=== PATIENT | female | born 1950 | race Two or more races ===

== ENCOUNTER 2022-08-12 08:14 | Observation (INO) | payer OTHER ==
[2022-08-12 10:54] LABS: BASO % 0.1 % (0-2.0); EOS % 0.2 % (0-4.5); HEMATOCRIT 43.8 % (32.4-45.2); HEMOGLOBIN 13.9 GM/dL (10.7-15.3); MCH 25.7 pg (25.7-33.7); MCHC 31.7 g/dl (32.0-36.0); MEAN PLT VOLUME 11.1 fl (7.5-11.1); MONO % 8.2 % (3.8-10.2); NEUT % 76.5 % (42.8-82.8); PLATELET COUNT 128 10^3/uL (134-434); RDW 14.2 % (11.6-15.6); WHITE BLOOD COUNT 6.9 K/mm3 (4.0-10.0)
[2022-08-12 11:01] LABS: INR 1.19 (0.83-1.09); PROTHROMBIN TIME (PATIENT) 13.7 SEC (9.7-13.0)
[2022-08-12 11:04] LABS: ACTIVATED PTT 29.8 SECONDS (25.2-36.5)
[2022-08-12 11:18] LABS: ALBUMIN 3.8 g/dl (3.4-5.0); BLOOD UREA NITROGEN 17.7 mg/dL (7-18)
[2022-08-12 11:21] LABS: CREATININE 0.8 mg/dL (0.55-1.3)
[2022-08-12 11:23] LABS: BILIRUBIN,TOTAL 0.4 mg/dL (0.2-1); TOT PROT 7.5 g/dl (6.4-8.2)
[2022-08-12] MEDS ORDERED: SODIUM CHLORIDE 500 ML IV STA (11:25)
[2022-08-12] MEDS ORDERED: OSELTAMIVIR PHOSPHATE 75 MG CAPSULE PO ONE (12:36)
[2022-08-12] MEDS ORDERED: DIPHTH,PERTUSS(ACELL),TET 0.5 ML DISP.SYRIN IM ONE ×2 (12:40→12:55)
[2022-08-12] MEDS ORDERED: ACETAMINOPHEN 325 MG TABLET (FP) PO PRN (12:41)
[2022-08-12 17:19] LABS: PH,URINE 5.5 (5.0-8.0); URINE APPEARANCE CLEAR; URINE BILIRUBIN NEGATIVE (NEGATIVE); URINE COLOR YELLOW; URINE GLUCOSE (UA) NEGATIVE (NEGATIVE); URINE KETONE 1+ (NEGATIVE); URINE LEUK ESTERASE NEGATIVE (NEGATIVE); URINE NITRITE NEGATIVE (NEGATIVE); URINE PROTEIN NEGATIVE (NEGATIVE)
[2022-08-12] MEDS ORDERED: ACETAMINOPHEN 325 MG TABLET (FP) ONE (20:31)
[2022-08-13 00:47] VITALS: BMI 20.9
[2022-08-13] MEDS: OSELTAMIVIR PHOSPHATE 75 MG CAPSULE PO SCH ×4 (01:14→21:06)
[2022-08-13 08:30] LABS: BASO % 0.6 % (0-2.0); EOS % 0.5 % (0-4.5); HEMATOCRIT 41.7 % (32.4-45.2); HEMOGLOBIN 13.6 GM/dL (10.7-15.3); LYMPH % 51.3 % (8-40); MCH 26.2 pg (25.7-33.7); MCHC 32.7 g/dl (32.0-36.0); MEAN CELL VOLUME 80.2 fl (80-96); MEAN PLT VOLUME 10.3 fl (7.5-11.1); MONO % 14.7 % (3.8-10.2); NEUT % 32.9 % (42.8-82.8); PLATELET COUNT 116 10^3/uL (134-434); RDW 14.2 % (11.6-15.6); WHITE BLOOD COUNT 3.2 K/mm3 (4.0-10.0)
[2022-08-13 08:57] LABS: CREATININE 0.5 mg/dL (0.55-1.3)
[2022-08-13 08:59] LABS: BILIRUBIN,TOTAL 0.5 mg/dL (0.2-1); BLOOD UREA NITROGEN 12.8 mg/dL (7-18); CALCIUM 9.1 mg/dL (8.5-10.1)
[2022-08-13 09:01] LABS: ALBUMIN 3.4 g/dl (3.4-5.0); MAGNESIUM 2.4 mg/dL (1.8-2.4); PHOSPHOROUS 3.3 mg/dL (2.5-4.9)
[2022-08-13] MEDS ORDERED: LACTATED RINGERS SOLUTION 1,000 ML/1,000 ML INFUS.BAG IV SCH (15:30)
[2022-08-13] MEDS: LISINOPRIL 20 MG TABLET PO SCH (21:06)
[2022-08-13] MEDS ORDERED: ATORVASTATIN CA 10 MG TABLET (FP) PO SCH (22:00)
[2022-08-14 07:56] LABS: HEMATOCRIT 44.7 % (32.4-45.2); HEMOGLOBIN 14.3 GM/dL (10.7-15.3); MCH 25.8 pg (25.7-33.7); MCHC 32.1 g/dl (32.0-36.0); MEAN CELL VOLUME 80.3 fl (80-96); MEAN PLT VOLUME 10.4 fl (7.5-11.1); PLATELET COUNT 129 10^3/uL (134-434); RBC 5.57 M/mm3 (3.60-5.2); RDW 14.2 % (11.6-15.6); WHITE BLOOD COUNT 3.3 K/mm3 (4.0-10.0)
[2022-08-14 08:45] LABS: CALCIUM 9.3 mg/dL (8.5-10.1)
[2022-08-14 08:46] LABS: BLOOD UREA NITROGEN 18.4 mg/dL (7-18)
[2022-08-14 08:49] LABS: CREATININE 0.7 mg/dL (0.55-1.3)
[2022-08-14] MEDS: OSELTAMIVIR PHOSPHATE 75 MG CAPSULE PO SCH (09:54)
[2022-08-14] MEDS: LISINOPRIL 20 MG TABLET PO SCH (09:54)
[2022-08-14 10:00] LABS: ANISOCYTOSIS 0; HELMET CELLS 0; HOWELL-JOLLY BODIES 0; MACROCYTOSIS 0; OVALOCYTE 0; ROULEAU 0; SICKELED CELLS 0; TARGET CELLS 0; TEAR DROP CELLS 0; TOXIC GRANULATION 0
[2022-08-14 10:23] VITALS: BP 119/67; PULSE 54; RESP 19; TEMP 98.7
== END 2022-08-14 14:13 | disposition home or self-care (01) ==
LOC: JER 08:14 → JERBED 09:13 → J4S 08-13 00:01
PROVIDERS: ADMIT Internal Medicine; ATTEND Internal Medicine
PROC: 0HQ0XZZ Repair Scalp Skin, External Approach (ICD-10-PCS; principal; 2022-08-12)
PROC: 3E0234Z Introduction of Serum, Toxoid and Vaccine into Muscle, Percutaneous Approach (ICD-10-PCS; 2022-08-12)
PROC: 3E0337Z Introduction of Electrolytic and Water Balance Substance into Peripheral Vein, Percutaneous Approach (ICD-10-PCS; 2022-08-12)
DX: J10.1 Influenza due to other identified influenza virus with other respiratory manifestations (principal); R05.9 Cough, unspecified; S01.01XA Laceration without foreign body of scalp, initial encounter; I10 Essential (primary) hypertension; E78.5 Hyperlipidemia, unspecified; W18.39XA Other fall on same level, initial encounter; Y93.89 Activity, other specified; Y92.89 Other specified places as the place of occurrence of the external cause
CPT/HCPCS: 0241U-QW; 12001-25; 36415; 70450-TC; 71045-TC-FY; 72125-TC; 80048; 80053; 81003; 83735; 84100; 84439; 84443; 84484; 85025; 85610; 85730; 86850; 86900; 86901; 87086; 90715; 93005; 93010; 93306-TC; 93880-TC; 96360; 96361; 96372; 97116-GP; 97161-GP; 99285-25; G0378